=== PATIENT | male | born 1955 | race Caucasian/White ===

== ENCOUNTER 2023-05-25 15:38 | Emergency (ER) | payer MEDICARE, OTHER ==
--- NOTE | 2023-05-25 16:19 | ED Physician Documentation ---
PD HPI LOWER EXT INJURY - Stated complaint Stated Complaint: RT FOOT SWOLLEN - Chief complaint Chief Complaint: Trauma Ext - History obtained from History obtained from: Patient (he was doing walking and yardwork, iht onsetpain lateral ankle/fot.) - History of Present Illness Type of injury: Other Timing - onset: How many days ago (2-3) Timing - duration: Days Review of Systems Skin: denies: Abrasion (s), Laceration (s) Neurologic: denies: Focal weakness, Numbness PD PAST MEDICAL HISTORY - Allergies Allergies/Adverse Reactions: Allergies Allergy/AdvReac Type Severity Reaction Status Date / Time hydrochlorothiazide AdvReac Unknown Verified 05/25/23 15:42 PD ED PE NORMAL - Vitals Vital signs reviewed: Yes - General General: Alert and oriented X 3, Well developed/nourished - Derm Derm: Normal color, Warm and dry - Extremities Extremities: Other (right lateral ankle at ATFL area with mild swelling and pain with stress testing. xray shows no fractres.) - Neuro Neuro: No motor deficit, No sensory deficit Results - Vitals Vitals: Vital Signs - 24 hr 05/25/23 05/25/23 15:43 17:03 Temperature 36.5 C Heart Rate 62 75 Respiratory 16 16 Rate Blood Pressure 145/79 H 142/79 H O2 Saturation 96 98 - Rads (name of study) right foot/ Relevant Findings:: Prelim report reviewed, EMP independent interpretation of test (no acute prcess) Departure - Departure Disposition: 01 Home, Self Care Clinical Impression: Ankle sprain, Ankle swelling Condition: Stable Record reviewed to determine appropriate education?: Yes Instructions: ED Sprain Ankle Comments: Your x-ray appears normal without any signs of fractures or bony abnormalities. The location and character of your tenderness/pain and the swelling and mild bruising would suggest a injury of the lateral ligaments or muscle attachment in that area. Elevate and rest your ankle to help reduce swelling. Use the ankle brace when up and around for the next several days to week to help with this as well. Sometimes this will take even 2 or 3 weeks for full healing and you can continue bracing or wrapping until better. Anti-inflammatory such as ibuprofen or naproxen can help with the process as well as the pain. To that add Tylenol every 4-6 hours if needed. Forms: PCP List Discharge Date/Time: 05/25/23 17:03
--- NOTE | 2023-05-25 16:53 | XRAY Report ---
PROCEDURE: Ankle 3 View RT INDICATIONS: Trauma TECHNIQUE: 3 views of the ankle were acquired. COMPARISON: None. FINDINGS: Bones: No fractures or dislocations. Ankle mortise is normally aligned. No suspicious bony lesions . Soft tissues: No tibiotalar joint effusion. Achilles tendon appears normal. Soft tissue swelling o sunny the lateral malleolus. IMPRESSION: No acute bony abnormality. Soft tissue swelling over the lateral malleolus. If clinical symptoms pers ist, consider a follow-up exam in 7-10 days. Reviewed by: Sulema Cordero MD on 05/25/2023 4:51 PM PDT Approved by: Sulema Cordero MD on 05/25/2023 4:51 PM PDT Station ID: [id number]
[2023-05-25 17:09] VITALS: BP 142/79; O2SAT 98
== END 2023-05-25 17:03 | disposition home or self-care (01) ==
LOC: ED 15:38
DX: S93.401A Sprain of unspecified ligament of right ankle, initial encounter (principal); X58.XXXA Exposure to other specified factors, initial encounter; Y93.01 Activity, walking, marching and hiking
CPT/HCPCS: 99283